=== PATIENT | male | born 1960 | race Two or more races ===

== ENCOUNTER 2016-10-23 14:41 | Emergency (ER) | payer SELFPAY ==
[2016-10-23] MEDS ORDERED: TRIA15CR TP (15:51)
--- NOTE | 2016-10-23 15:51 | PHYS DOC ---
Adult General Chief Complaint Chief Complaint: SKIN PROBLEM HPI HPI Patient is a 56 year old L presents to the emergency department with complaint of rash on the left lower shimmy for one week. 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 He states he's been using [id number] hydrocortisone without relief of symptoms. He is here now seeking further evaluation. Review of Systems Review of Systems Constitutional: Denies fever or chills [] Respiratory: Denies cough or shortness of breath [] Cardiovascular: No additional information not addressed in HPI []ain [] Integument: Pruritic rash Neurologic: Denies headache, focal weakness or sensory changes [] Physical Exam Physical Exam Constitutional: Well developed, well nourished, no acute distress, non-toxic appearance. [] Cardiovascular:Heart rate regular rhythm, no murmur [] Lungs & Thorax: Bilateral breath sounds clear to auscultation [] Skin: Left lower extremity, anterior, erythematous based maculopapular rash, no vesicles, no bullae, pustules. There are chronic skin changes. Extremities: No tenderness, no cyanosis, no clubbing, ROM intact, no edema. [] Neurologic: Alert and oriented X 3, normal motor function, normal sensory function, no focal deficits noted. [] Psychologic: Affect normal, judgement normal, mood normal. [] EKG EKG [] Radiology/Procedures Radiology/Procedures [] Course & Med Decision Making Course & Med Decision Making Pertinent Labs and Imaging studies reviewed. (See chart for details) [] Dragon Disclaimer Dragon Disclaimer This electronic medical record was generated, in whole or in part, using a voice recognition dictation system. Departure Departure Impression: Primary Impression: Dermatitis Disposition: 01 HOME, SELF-CARE Condition: STABLE Referrals: NO PCP (PCP) Patient Instructions: Contact Dermatitis Scripts Triamcinolone Acetonide (TRIAMCINOLONE ACETONIDE 0.5% CREAM) 15 Gm Cream..g. 1 JAYLIN TP BID for 10 Days, #30 GM Prov: JABIER BRANNON APRN 10/23/16 JABIER BRANNON APRN Oct 23, 2016 15:51
== END 2016-10-23 16:19 | disposition home or self-care (01) ==
LOC: ER 14:41
DX: L30.9 Dermatitis, unspecified (principal)
CPT/HCPCS: 99283